=== PATIENT | female | born 1960 | race Caucasian/White ===

== ENCOUNTER 2018-02-17 01:17 | Emergency (ER) | payer OTHER ==
[~2018-02-17] VITALS: Ht 157.5 cm; Wt 85.3 kg
[2018-02-17] MEDS ORDERED: DIOVAN160 M1 PO (01:37)
[2018-02-17] MEDS ORDERED: GABAPENTIN800 MG PO (01:38)
[2018-02-17] MEDS ORDERED: TIZANIDINE HCL4 M1 PO (01:39)
[2018-02-17] MEDS ORDERED: CYMBALTA60 MG PO (01:39)
[2018-02-17] MEDS ORDERED: LIPITOR20 MG PO (01:39)
[2018-02-17] MEDS ORDERED: METOPROLOL SUCC50 MG PO (01:40)
[2018-02-17] MEDS ORDERED: KEPPRA500 MG PO (01:40)
[2018-02-17] MEDS ORDERED: LEVETIRACETAM500 MG PO (01:41)
[2018-02-17] MEDS ORDERED: ZITHROMAX500 MG PO ×2 (01:42→07:03)
[2018-02-17] MEDS ORDERED: ALBUTEROL2.5 MG/3 M IH (07:03)
[2018-02-17] MEDS ORDERED: PULMICORT1 MG/2 ML IH (07:03)
[2018-02-17] MEDS ORDERED: ZYNCOF 20-400120 ML PO (07:03)
== END 2018-02-17 16:51 | disposition home or self-care (01) ==
LOC: ER 01:17
DX: J06.9 Acute upper respiratory infection, unspecified (principal); J11.1 Influenza due to unidentified influenza virus with other respiratory manifestations